=== PATIENT | female | born 1925 | race Caucasian/White ===

== ENCOUNTER 2016-05-20 23:29 | Observation (INO) | payer OTHER ==
[~2016-05-20] VITALS: Ht 152.4 cm; Wt 84.8 kg
[~2016-05-20 23:29] MED LIST: ACET-1222 PO; ASPI81TA21 PO; ATOR-24 PO; LATA0.009 OPB; LISI-461 PO; METO25TA3 PO; NTRGSL4 UT; PRLSR20 PO; ROPI0.25 PO; SITA25TA PO; TIMO0.2534 OP
--- NOTE | 2016-05-20 23:47 | EMERGENCY ROOM VISIT NOTE ---
History Report prepared by Griffinibcheng: Linda Terry Under the Supervision of: Dr. Sukumar Fountain M.D. First contact with patient: 23:39 Chief Complaint: COUGH Stated Complaint: CONGESTIVE HEART FAILURE,SORETHROAT,COUGH History of Present Illness The patient is a 89 year old female who presents to the Emergency Room with complaints of worsened shortness of breath over the past 1.5 days. Per patient' s family, the patient developed some cold-like symptoms 4 days ago, including a cough and congestion. Yesterday, the patient's family noticed that she was having some difficulty breathing. Her family were concerned as the patient has a history of CHF. She is not on oxygen at home. She takes baby aspirin but is not on any other blood thinners. Source of History: patient Onset: 1.5 days ago Position: other (Global) Timing: worsening Associated Symptoms: + cough Note: Other symptoms: congestion Review of Systems See HPI for pertinent positives & negatives. A total of 10 systems reviewed and were otherwise negative. Past Medical & Surgical Medical Problems: (1) Aortic valve stenosis, severe (2) Diab Azeb Wo Compl, Type Ii Or Unspec Type, Not Uncntrld (3) GERD (gastroesophageal reflux disease) (4) Glaucoma (5) H/O: CVA (cerebrovascular accident) (6) Heart disease (7) Heterozygous for MTHFR gene mutation (8) Hip fracture, intertrochanteric (9) History of DVT (deep vein thrombosis) (10) History of fracture of vertebra (11) History of pulmonary embolus (PE) (12) Hyperlipidemia Nec/Nos (13) Hypertension Nos (14) Osteoporosis (15) PVD (peripheral vascular disease) (16) RBBB (17) Rheumatoid arthritis (18) Right Hip Fracture (19) S/p stomach biopsy (20) SOB (shortness of breath) Surgical Problems: (1) H/O esophagogastroduodenoscopy (2) H/O heart bypass surgery (3) H/O thyroid surgery (4) History of cataract surgery (5) History of right knee joint replacement (6) S/P CABG x 2 (7) S/p fixation of hip fracture (8) S/P repair of paraesophageal hernia Family History Diabetes mellitus FH: cancer FH: heart disease Hypertension Kidney disease Kidney stones Social History Smoking Status: Never Smoker Alcohol Use: none Drug Use: none Marital Status: Housing Status: lives alone Occupation Status: retired Current/Historical Medications Scheduled Aspirin Enteric Coated (Ecotrin Or Generic), 81 MG PO DAILY Atorvastatin (Lipitor), 40 MG PO DAILY Furosemide (Lasix), 10 MG PO DAILY Latanoprost (Xalatan 0.005% Oph [place]), 1 DROPS OPB HS Lisinopril (Zestril), 10 MG PO QAM Metoprolol Succ (Toprol Xl) (Toprol-Xl), 12.5 MG PO DAILY Omeprazole (Prilosec), 20 MG PO QAM Ropinirole (Requip), 0.25 MG PO HS Sitagliptin (Januvia), 25 MG PO QAM Scheduled PRN Acetaminophen (Acetaminophen Extra Stren), 1,000 MG PO Q6 PRN for Pain or Fever Nitroglycerin (Nitrostat), 0.4 MG UT UD PRN for Chest Pain Allergies Coded Allergies: No Known Allergies (Verified , 05/21/16) Physical Exam Vital Signs Date Time Temp Pulse Resp B/P Pulse Ox O2 Delivery O2 Flow Rate FiO2 05/21/16 00:54 82 20 94 Room Air 05/20/16 23:53 91 05/20/16 23:49 92 Room Air 05/20/16 23:48 89 Room Air 05/20/16 23:47 93 Room Air 05/20/16 23:34 36.8 91 20 166/80 95 Room Air Physical Exam GENERAL: Patient is a healthy-appearing well-nourished 89 year old female. HEAD: Normocephalic atraumatic EYES: Ocular movements intact pupils equal and react to light OROPHARYNX mucous membranes are moist no exudates present no erythema or edema present NECK: Supple no nuchal rigidity CHEST: Good equal expansion LUNGS: Clear and equal to auscultation CARDIAC: Grade 2/6 systolic murmur. ABDOMEN: Soft nontender no guarding BACK: No CVA tenderness EXTREMITIES: No pain upon palpation normal muscle strength in all groups no clubbing cyanosis or edema NEURO: Patient is following commands is answering questions appropriately. Alert and oriented x3 Cranial Nerves 2-12 grossly intact Medical Decision & Procedures ER Provider Diagnostic Interpretation: X-ray results as stated below per interpretation by me: Chest x-ray 1 view portable: Enlarged heart. No evidence of pneumonia, congestion, or pneumothorax. Laboratory Results 05/20/16 23:52 Red Blood Count 3.61, Mean Corpuscular Volume 87.8, Mean Corpuscular Hemoglobin 29.1, Mean Corpuscular Hemoglobin Concent 33.1, Mean Platelet Volume 10.0, Neutrophils (%) (Auto) 68.5, Lymphocytes (%) (Auto) 25.0, Monocytes (%) (Auto) 5.8, Eosinophils (%) (Auto) 0.3, Basophils (%) (Auto) 0.1, Neutrophils # (Auto) 4.95, Lymphocytes # (Auto) 1.81, Monocytes # (Auto) 0.42, Eosinophils # (Auto) 0.02, Basophils # (Auto) 0.01 05/20/16 23:52 Test 05/20/16 00:00 05/20/16 23:52 Influenza Type A (RT-PCR) Neg for Influ A (NEG) Influenza Type B (RT-PCR) Neg for Influ B (NEG) White Blood Count 7.23 K/uL (4.8-10.8) Red Blood Count 3.61 M/uL (4.2-5.4) Hemoglobin 10.5 g/dL (12.0-16.0) Hematocrit 31.7 % (37-47) Mean Corpuscular Volume 87.8 fL (80-100) Mean Corpuscular Hemoglobin 29.1 pg (25-34) Mean Corpuscular Hemoglobin Concent 33.1 g/dl (32-36) Platelet Count 278 K/uL (130-400) Mean Platelet Volume 10.0 fL (7.4-10.4) Neutrophils (%) (Auto) 68.5 % Lymphocytes (%) (Auto) 25.0 % Monocytes (%) (Auto) 5.8 % Eosinophils (%) (Auto) 0.3 % Basophils (%) (Auto) 0.1 % Neutrophils # (Auto) 4.95 K/uL (1.4-6.5) Lymphocytes # (Auto) 1.81 K/uL (1.2-3.4) Monocytes # (Auto) 0.42 K/uL (0.11-0.59) Eosinophils # (Auto) 0.02 K/uL (0-0.5) Basophils # (Auto) 0.01 K/uL (0-0.2) RDW Standard Deviation 46.5 fL (36.4-46.3) RDW Coefficient of Variation 14.4 % (11.5-14.5) Immature Granulocyte % (Auto) 0.3 % Immature Granulocyte # (Auto) 0.02 K/uL (0.00-0.02) Prothrombin Time 10.7 SECONDS (9.0-12.0) Prothromb Time International Ratio 1.0 (0.9-1.1) D-Dimer 2960 ug/L FEU (0-500) Anion Gap 12.0 mmol/L (3-11) Est Creatinine Clear Calc Drug Dose 36.2 ml/min Estimated GFR () 57.8 Estimated GFR (Non- 49.9 BUN/Creatinine Ratio 23.2 (10-20) Calcium Level 8.4 mg/dl (8.5-10.1) Magnesium Level 1.9 mg/dl (1.8-2.4) Total Bilirubin 0.6 mg/dl (0.2-1) Direct Bilirubin 0.1 mg/dl (0-0.2) Aspartate Amino Transf (AST/SGOT) 17 U/L (15-37) Alanine Aminotransferase (ALT/SGPT) 28 U/L (12-78) Alkaline Phosphatase 118 U/L (45-117) Total Creatine Kinase 55 U/L (26-192) Creatine Kinase MB 0.5 ng/ml (0.5-3.6) Creatine Kinase MB Ratio 0.9 (0-3.0) Pro-B-Type Natriuretic Peptide 1492 pg/ml (0-1800) Total Protein 7.1 gm/dl (6.4-8.2) Albumin 3.3 gm/dl (3.4-5.0) Lipase 135 U/L (73-393) Labs reviewed by ED physician. Medications Administered Medications (Trade) Dose Ordered Sig/Deborah Route Start Time Stop Time Status Last Admin Dose Admin Albuterol/ Ipratropium (Duoneb) 12 ml ONE ONCE INH 05/21/16 00:15 05/21/16 00:17 DC 05/21/16 00:15 12 ML Methylprednisolone Sodium Succinate (Solu-Medrol IV) 60 mg NOW STAT IV 05/21/16 00:15 05/21/16 00:17 DC 05/21/16 00:43 60 MG ECG Indication: SOB/dyspnea Rate (beats per minute): 89 Rhythm: normal sinus Findings: RBBB, no acute ischemic change, no ectopy ED Course 2340: Past medical records reviewed. The patient was evaluated in room A11. A complete history and physical examination was performed. 0015: Ordered Solu-Medrol 60 mg IV, DuoNeb 12 ml INH. 0104: Upon reexamination the patient is resting comfortably. I discussed results and treatment plan with the patient. The patient and her family verbalizes agreement and understanding. I spoke with Dr. Arana from the [facility] Hospitalist Service. The patient will be evaluated for further management. Medical Decision Differential diagnosis: Etiologies such as infections, reactive airway disease, pneumonia, pneumothorax , COPD, CHF, cardiac ischemia, pulmonary embolism, musculoskeletal, gastrointestinal, as well as others were entertained. This is an 89-year-old female who presents emergency department complaining of shortness of breath that has been on going for the past 2 days. Upon arrival to the emergency department the patient is hypoxic. For this reason the patient was given an hour-long breathing treatment started on Solu-Medrol. Chest x-ray does not show any evidence of congestive heart failure. The patient does have an elevation in her troponin. I will note that the patient normally has an elevated troponin however today's reading is slightly higher than normal. Based on these findings and fact the patient remains hypoxic, I discussed the case with the hospitalist service who agreed to admit the patient. Patient and family were in agreement with the treatment plan. Consults Time Called: [phone] Consulting Physician: Dr. Arana - [facility] Returned Call: [phone] I discussed the case with him. The patient will be evaluated for further management. Impression Primary Impression: Chronic obstructive pulmonary disease Additional Impression: Hypoxia Scribe Attestation The scribe's documentation has been prepared under my direction and personally reviewed by me in its entirety. I confirm that the note above accurately reflects all work, treatment, procedures, and medical decision making performed by me. Departure Information Dispostion Being Evaluated By Hospitalist Referrals Robson Oquendo D.O. (PCP) Patient Instructions My [facility] Problem Qualifiers Primary Impression: Chronic obstructive pulmonary disease COPD type: unspecified COPD Qualified Codes: J44.9 - Chronic obstructive pulmonary disease, unspecified
[2016-05-20] MEDS ORDERED: LATA0.5S OPB (23:57)
[2016-05-20] MEDS ORDERED: METO25TA3 PO (23:58)
[2016-05-21] MEDS ORDERED: FURO-85 PO
[2016-05-21 00:12] LABS: BASO % 0.1 %; BASO ABS # 0.01 K/uL (0-0.2); COMPLETE YES; EOS % 0.3 %; HEMATOCRIT 31.7 % (37-47); IG% 0.3 %; LYMPH ABS # 1.81 K/uL (1.2-3.4); MEAN CELL VOLUME 87.8 fL (80-100); MEAN CORPUSCULAR HEMOGLOBIN 29.1 pg (25-34); MEAN CORPUSCULAR HGB CONC 33.1 g/dl (32-36); MONO % 5.8 %; NEUT % 68.5 %; PLATELET COUNT 278 K/uL (130-400); RED BLOOD COUNT 3.61 M/uL (4.2-5.4); WHITE BLOOD COUNT 7.23 K/uL (4.8-10.8)
[2016-05-21] MEDS ORDERED: METHYLPREDNISOLONE 125 MG VIAL IV STA (00:15)
[2016-05-21] MEDS ORDERED: ALBUT/IPRATROP 3MG/0.5MG NEB 3 ML VIAL INH ONE (00:15)
[2016-05-21 00:21] LABS: PROTHROMBIN TIME (PATIENT) 10.7 SECONDS (9.0-12.0)
[2016-05-21 00:31] LABS: BUN/CREATININE RATIO 23.2 (10-20); CALCIUM 8.4 mg/dl (8.5-10.1); POTASSIUM 4.3 mmol/L (3.5-5.1)
[2016-05-21 00:42] LABS: CKMB/CK RATIO 0.9 (0-3.0)
[2016-05-21 00:54] VITALS: PULSE 82; O2SAT 94
[2016-05-21 01:12] LABS: MAGNESIUM 1.9 mg/dl (1.8-2.4)
[2016-05-21] MEDS ORDERED: ALBUT/IPRATROP 3MG/0.5MG NEB 3 ML VIAL INH PRN (01:45)
[2016-05-21] MEDS ORDERED: ACETAMINOPHEN 325 MG TAB PO PRN (01:45)
[2016-05-21] MEDS ORDERED: GLUCOSE 40% GEL 15 GM TUBE PO PRN (01:45)
[2016-05-21] MEDS ORDERED: GLUCAGON FOR INJ 1 MG VIAL SQ PRN (01:45)
[2016-05-21] MEDS ORDERED: ONDANSETRON INJ 2 MG/ML 2 ML VIAL IV PRN (01:45)
[2016-05-21] MEDS ORDERED: NITROGLYCERIN 0.4 MG SL PER TAB CHARGE UT PRN (01:45)
[2016-05-21] MEDS ORDERED: TRAMADOL HCL 50 MG TAB PO PRN (01:45)
[2016-05-21] MEDS ORDERED: GLUCOSE 10 TABS/TUBE PO PRN (01:45)
[2016-05-21] MEDS ORDERED: NITROGLYCERIN 0.4 MG SL PER TAB CHARGE SL PRN (01:45)
[2016-05-21] MEDS ORDERED: MoRPHine SULFATE 4 MG/ML 1 ML CARP\\VIAL IV PRN (01:45)
[2016-05-21] MEDS ORDERED: DEXTROSE 50% 50 ML SYR IV PRN (01:45)
[2016-05-21] MEDS ORDERED: OPTIRAY 320 IV PRN (02:00)
[2016-05-21 02:15] LABS: INFLUENZA A PCR Neg for Influ A (NEG); INFLUENZA B PCR Neg for Influ B (NEG)
[2016-05-21 02:32] VITALS: BP 128/79; PULSE 99; TEMP 36.6; O2SAT 91; Ht 152.4 cm; Wt 84.8 kg
[2016-05-21] MEDS ORDERED: SODIUM CHLORIDE 0.45% 1000ML 1,000 ML IV ONE (02:45)
[2016-05-21] MEDS ORDERED: INSULIN GLARGINE SOLOSTAR 100 UNITS/ML 3 ML PEN SC ONE (02:45)
[2016-05-21] MEDS ORDERED: IV FLUIDS COMPLETED PRN (02:45)
[2016-05-21] MEDS ORDERED: LEVALBUTEROL/IPRATROPIUM NEB INH PRN (03:00)
[2016-05-21] MEDS ORDERED: IPRATROPIUM BROMIDE NEB SOLN 0.02% 2.5 ML VIAL INH PRN (03:00)
[2016-05-21] MEDS ORDERED: LEVALBUTEROL/IPRATROPIUM NEB INH SCH (03:00)
[2016-05-21] MEDS ORDERED: LEVALBUTEROL 1.25MG/0.5ML NEB INH PRN (03:00)
[2016-05-21 04:00] VITALS: BP 118/64; PULSE 97; TEMP 36.9; O2SAT 92
--- NOTE | 2016-05-21 04:59 | HISTORY & PHYSICAL EXAMINATION ---
DATE OF ADMISSION: 05/21/2016 PRIMARY CARE PHYSICIAN: Dr. Oquendo. Hx obtained from px and records. CHIEF COMPLAINT: Shortness of breath. HISTORY OF PRESENT ILLNESS: Medical history significant for chronic diastolic heart failure, EF of 70%, history of hemorrhagic CVA secondary, hypertension, hyperlipidemia, CAD sp CABG, hx severe aortic stenosis, DM2, on oral meds, reflux, history of pulmonary embolism sp coumadin, chronic anemia, baseline hemoglobin 9 to 10, Recent confinement last November 2015 for sob secondary to severe aortic stenosis. Patient not a surgical candidate, as per documentation. Few days' history of cough symptoms productive of clear sputum. No chest pain. Sick contacts. Patient noted to be short of breath, leg swelling more than usual. No fever, no chills. At the Emergency Room, px received Solu-Medrol and breathing treatment for bronchitis. The patient currently comfortable. MEDICAL HISTORY: As above. SURGERIES: She has had orthopedic procedures, thyroidectomy, CAD status post CABG, cataract, knee surgery, hernia repair. HOME MEDICATIONS: Include Toprol, Nitrostat, Prilosec, Requip, Januvia, Tylenol, aspirin, Lipitor, Lasix, Xalatan, lisinopril. ALLERGIES: No known drug allergies. FAMILY HISTORY: Heart disease. PERSONAL AND SOCIAL HISTORY: Nonsmoker, no chronic intake of alcoholic beverages. REVIEW OF SYSTEMS: As per HPI, all other ROS negative. PHYSICAL EXAMINATION: VITAL SIGNS: Blood pressure noted to be initially 163/80, later 111/61, pulse rate 91, RR 26, sats 95 on room air. GENERAL: Noted to be obese, comfortable, no respiratory distress. SKIN: Pallor. HEENT: Pale palpebral conjunctivae. Dry mucosa. NECK: Short neck. LUNGS: Decreased breath sounds. Occasional wheeze. HEART: Regular rate and rhythm. Systolic murmur. ABDOMEN: Some distention, non tender. EXTREMITIES: Bilateral lower extremity edema, no tenderness. NEUROLOGIC: No gross focality. LABS: Hemoglobin 10.5, hematocrit 31, white cells 7.3, platelets 278. Sodium 140, potassium 4.3, chloride 102, CO2 26, BUN 20, creatinine 1, glucose 140. Hemoglobin A1c, March 2016, was 7.7. D-dimer was abnormal. Troponin noted to be 0.131. EKG NSR, ST depressions, lateral leads. Chest x-ray showed atelectasis and cardiomegaly. ASSESSMENT: 1. Shortness of breath, troponinemia 2 to viral bronchitis. No sepsis. Rule out recurrent pulmonary embolism with abnormal D-dimer, 2. HTN slightly elevated 3. coronary artery disease, status post coronary artery bypass grafting 4. severe aortic stenosis, no overt decompensation. Not a surgical candidate, as per previous documentation. 5. chronic anemia, hemoglobin at baseline. 6. History of intracranial hemorrhage secondary to uncontrolled blood pressure in the past 7. reymundo leg swelling, rule out deep venous thrombosis, 8. DM2. oral meds, suboptimal control as of recent HgA1C PLAN: PCU. CT chest, PE study. LE Venous Dopplers ro DVT. Further management pending PE workup results supportive mx for bronchitis sx, nebs RTC, prn Follow cardiac markers. Basal insulin, ISS BG goal 140-180. carb count coverage indicated for suboptimal BG control DVT prophylaxis with Lovenox subQ. DNR. MTDD
[2016-05-21 05:55] LABS: COMPLETE YES; HEMATOCRIT 30.3 % (37-47); IG% 0.2 %; LYMPH % 14.5 %; LYMPH ABS # 0.91 K/uL (1.2-3.4); MEAN CELL VOLUME 87.3 fL (80-100); MEAN CORPUSCULAR HEMOGLOBIN 29.7 pg (25-34); MEAN PLATELET VOLUME 10.1 fL (7.4-10.4); MONO % 1.9 %; NEUT % 83.4 %; PLATELET COUNT 256 K/uL (130-400); RED BLOOD COUNT 3.47 M/uL (4.2-5.4); WHITE BLOOD COUNT 6.29 K/uL (4.8-10.8)
[2016-05-21 06:35] LABS: BUN/CREATININE RATIO 19.3 (10-20); CALCIUM 8.6 mg/dl (8.5-10.1); CREATININE 1.1 mg/dl (0.60-1.20); POTASSIUM 4.2 mmol/L (3.5-5.1)
--- NOTE | 2016-05-21 06:56 | DIAGNOSTIC IMAGING REPORT ---
CHEST ONE VIEW PORTABLE CLINICAL HISTORY: Chest pain. COMPARISON STUDY: Chest radiograph December 15, 2015. FINDINGS: There are median sternotomy wires and clips from bypass grafting. There is no evidence of pulmonary edema. No pneumothorax or pleural effusion is present. Mild hazy left basilar opacity likely reflects atelectasis or prominent epicardial fat pad. Moderate cardiomegaly is unchanged. IMPRESSION: No acute findings. No change in appearance of the chest. Electronically signed by: Tolu Treviño M.D. 05/21/2016 6:54 AM Dictated Date/Time: 05/21/2016 6:53 AM
[2016-05-21 07:27] VITALS: PULSE 93; O2SAT 97
[2016-05-21] MEDS: IPRATROPIUM BROMIDE NEB SOLN 0.02% 2.5 ML VIAL INH SCH ×2 (07:27→14:07)
[2016-05-21] MEDS: LEVALBUTEROL 1.25MG/0.5ML NEB INH SCH ×2 (07:27→14:07)
[2016-05-21 07:54] VITALS: BP 119/69; PULSE 91; TEMP 37; O2SAT 91
--- NOTE | 2016-05-21 07:57 | DIAGNOSTIC IMAGING REPORT ---
CHEST CTA for PULMONARY ARTERIES CT DOSE: 538.19 mGy.cm HISTORY: Short of breath. TECHNIQUE: Multiaxial CT images of the chest were performed following the intravenous administration of contrast to evaluate the pulmonary arteries. Maximal intensity projection images were also obtained. COMPARISON STUDY: Chest 05/20/2016. FINDINGS: There are few punctate calcified granuloma seen within the liver and spleen. Visualized adrenal glands are unremarkable. A few small gallstones. Moderate stenosis at the proximal celiac and superior mesenteric arteries. The heart is enlarged. There are poststernotomy changes. Moderate stenosis at the proximal left subclavian artery. Normal caliber thoracic aorta. Moderate calcified plaque within the aortic arch and descending thoracic aorta. No filling defects within the pulmonary arteries to suggest pulmonary embolus. No pleural or pericardial effusions. Mitral annulus calcifications. Multiple borderline-enlarged mediastinal lymph nodes. The central airways are patent. No pneumothorax. Mild dependent changes seen at the lung bases. No focal lung consolidations to suggest pneumonia. Scattered faint groundglass densities may be due to the poor inspiratory effort/air trapping. IMPRESSION: No evidence for pulmonary embolus. Additional findings as described above. Electronically signed by: Colby Crabtree M.D. 05/21/2016 7:56 AM Dictated Date/Time: 05/21/2016 7:49 AM
[2016-05-21] MEDS ORDERED: ALBUT/IPRATROP 3MG/0.5MG NEB 3 ML VIAL INH SCH (08:00)
--- NOTE | 2016-05-21 08:41 | DIAGNOSTIC IMAGING REPORT ---
BILATERAL LOWER EXTREMITY VENOUS DOPPLER CLINICAL HISTORY: Bilateral leg swelling. COMPARISON STUDY: Right lower extremity venous Doppler June 11, 2011 and left lower extremity venous Doppler January 05, 2009 TECHNIQUE: Sonography of the deep venous system of the bilateral lower extremities was performed. Compression and augmentation were evaluated. FINDINGS: The bilateral common femoral, superficial femoral and popliteal veins were compressible. Augmentation was normal. Flow was shown within the deep calf vessels although the calf vessels were suboptimally assessed due to suboptimal penetration. IMPRESSION: No evidence of deep venous thrombus within the bilateral lower extremities. Electronically signed by: Tolu Treviño M.D. 05/21/2016 8:40 AM Dictated Date/Time: 05/21/2016 8:27 AM
[2016-05-21] MEDS ORDERED: ATORVASTATIN 40 MG TAB PO SCH (09:00)
[2016-05-21] MEDS ORDERED: ASPIRIN 81 MG ECTAB PO SCH (09:00)
[2016-05-21] MEDS ORDERED: LISINOPRIL 10 MG TAB PO SCH (09:00)
[2016-05-21] MEDS ORDERED: ENOXAPARIN 30 MG/0.3 ML SYR SC SCH (09:00)
[2016-05-21] MEDS ORDERED: PANTOprazole SOD 40 MG TAB PO SCH (09:00)
[2016-05-21] MEDS ORDERED: METOPROLOL SUCC 25MG EXT REL TAB PO SCH (09:00)
[2016-05-21] MEDS: INSULIN ASPART 100 UNITS/ML 3 ML PEN SC SCH ×2 (09:33→12:15)
--- NOTE | 2016-05-21 09:56 | Progress Note ---
Subjective Date of Service: May 21, 2016. Subjective Pt evaluation today including: conversation w/ patient, physical exam, lab review, review of studies, review of inpatient medication list Saw/examined the patient in room 284 Doing well today, very anxious to get home, does not want to be here Cough improving, no shortness of breath, no chest pain Problem List Medical Problems: (1) Acute renal failure Status: Acute (2) Chronic obstructive pulmonary disease Status: Acute (3) Elevated troponin Status: Acute (4) Hypoxia Status: Acute (5) Weakness Status: Acute Review of Systems Constitutional: No chills, No fever Respiratory: + cough, + sputum, No dyspnea at rest, No dyspnea on exertion, No hemoptysis, No shortness of breath, No wheezing Cardiac: No chest pain, No edema, No orthopnea, No palpitations Abdomen: No constipation, No diarrhea, No nausea, No pain, No vomiting Medications Current Inpatient Medications Medications (Trade) Dose Ordered Sig/Deborah Route Start Time Stop Time Status Last Admin Dose Admin Insulin Glargine (Lantus Solostar Pen) 5 unit DAILY SC 05/22/16 09:00 06/21/16 08:59 Enoxaparin Sodium 30 mg 30 mg Q24H SC 05/21/16 09:00 06/20/16 08:59 05/21/16 07:45 30 MG Sodium Chloride (1/2 Nss 1000ml) 1,000 ml @ 60 mls/hr [id number] ONCE IV 05/21/16 02:45 05/21/16 19:24 05/21/16 02:58 60 MLS/HR Acetaminophen (Tylenol Tab) 650 mg Q4H PRN PO 05/21/16 01:45 06/20/16 01:44 05/21/16 05:48 650 MG Nitroglycerin (Nitrostat Tab) 0.4 mg UD PRN SL 05/21/16 01:45 06/20/16 01:44 Insulin Aspart (novoLOG ASPART) SLIDING SCALE If C... ACHS SC 05/21/16 06:30 06/20/16 06:59 05/21/16 09:33 8 UNITS Glucose (Glucose 40% Gel) 15-30 GRAMS 15 GRAMS... UD PRN PO 05/21/16 01:45 06/20/16 01:44 Glucose (Glucose Chew Tab) 4-8 Tablets 4 Tabl... UD PRN PO 05/21/16 01:45 06/20/16 01:44 Dextrose (Dextrose 50% 50ML Syringe) 25-50ML OF 50% DW IV FOR... UD PRN IV 05/21/16 01:45 06/20/16 01:44 Glucagon (Glucagon Inj) 1 mg UD PRN SQ 05/21/16 01:45 06/20/16 01:44 Ondansetron HCl (Zofran Inj) 4 mg Q6H PRN IV 05/21/16 01:45 06/20/16 01:44 Tramadol HCl (Ultram Tab) 25 mg Q6H PRN PO 05/21/16 01:45 06/20/16 01:44 Morphine Sulfate (MoRPHine SULFATE INJ) 4 mg Q3H PRN IV 05/21/16 01:45 06/04/16 01:44 Aspirin (Ecotrin Tab) 81 mg DAILY PO 05/21/16 09:00 06/20/16 08:59 05/21/16 07:40 81 MG Atorvastatin Calcium (Lipitor Tab) 40 mg DAILY PO 05/21/16 09:00 06/20/16 08:59 05/21/16 07:40 40 MG Latanoprost (Xalatan Oph Soln) 1 drops HS OPB 05/21/16 21:00 06/20/16 20:59 Lisinopril (Zestril Tab) 10 mg QAM PO 05/21/16 09:00 06/20/16 08:59 05/21/16 07:40 10 MG Metoprolol Succinate (Toprol Xl Tab) 12.5 mg DAILY PO 05/21/16 09:00 06/20/16 08:59 05/21/16 07:39 12.5 MG Ropinirole HCl (Requip Tab) 0.25 mg HS PO 05/21/16 21:00 06/20/16 20:59 Pantoprazole Sodium (Protonix Tab) 40 mg QAM PO 05/21/16 09:00 06/20/16 08:59 05/21/16 07:40 40 MG Ioversol (Optiray 320) 100 ml UD PRN IV 05/21/16 02:00 05/25/16 01:59 Miscellaneous (Iv Fluids Completed) 1 ea PRN PRN N/A 05/21/16 02:45 05/21/17 02:44 Ipratropium [place] (Atrovent 0.02% 0.5MG/2.5ML Neb) 0.5 mg Q6R INH 05/21/16 03:00 06/20/16 02:59 05/21/16 07:27 0.5 MG Levalbuterol (Xopenex 1.25MG/ 0.5ML Neb) 1.25 mg Q6R INH 05/21/16 03:00 06/20/16 02:59 05/21/16 07:27 1.25 MG Ipratropium [place] (Atrovent 0.02% 0.5MG/2.5ML Neb) 0.5 mg Q4H PRN INH 05/21/16 03:00 06/20/16 02:59 Levalbuterol (Xopenex 1.25MG/ 0.5ML Neb) 1.25 mg Q4H PRN INH 05/21/16 03:00 06/20/16 02:59 Objective Vital Signs Date Time Temp Pulse Resp B/P Pulse Ox O2 Delivery O2 Flow Rate FiO2 05/21/16 07:54 37.0 91 16 119/69 91 Room Air 05/21/16 07:27 93 18 97 Room Air 05/21/16 04:00 36.9 97 20 118/64 92 Room Air 05/21/16 02:32 36.6 99 22 128/79 91 Room Air 05/21/16 02:01 76 22 114/72 94 Room Air 05/21/16 01:19 78 24 111/61 98 Nebulizer 05/21/16 00:54 82 20 94 Room Air 05/20/16 23:53 91 05/20/16 23:49 92 Room Air 05/20/16 23:48 89 Room Air 05/20/16 23:47 93 Room Air 05/20/16 23:34 36.8 91 20 166/80 95 Room Air Physical Exam General Appearance: no apparent distress Respiratory/Chest: lungs clear, normal breath sounds, no respiratory distress, no accessory muscle use Cardiovascular: regular rate, rhythm, no edema, + systolic murmur (+4/6) Abdomen: normal bowel sounds, non tender, soft Extremities: normal inspection, no pedal edema Neurologic/Psychiatric: no motor/sensory deficits, alert, normal mood/affect Laboratory Results Last 24 Hours Test 05/20/16 23:52 05/21/16 05:42 05/21/16 07:33 White Blood Count 7.23 K/uL 6.29 K/uL Red Blood Count 3.61 M/uL 3.47 M/uL Hemoglobin 10.5 g/dL 10.3 g/dL Hematocrit 31.7 % 30.3 % Mean Corpuscular Volume 87.8 fL 87.3 fL Mean Corpuscular Hemoglobin 29.1 pg 29.7 pg Mean Corpuscular Hemoglobin Concent 33.1 g/dl 34.0 g/dl Platelet Count 278 K/uL 256 K/uL Mean Platelet Volume 10.0 fL 10.1 fL Neutrophils (%) (Auto) 68.5 % 83.4 % Lymphocytes (%) (Auto) 25.0 % 14.5 % Monocytes (%) (Auto) 5.8 % 1.9 % Eosinophils (%) (Auto) 0.3 % 0.0 % Basophils (%) (Auto) 0.1 % 0.0 % Neutrophils # (Auto) 4.95 K/uL 5.25 K/uL Lymphocytes # (Auto) 1.81 K/uL 0.91 K/uL Monocytes # (Auto) 0.42 K/uL 0.12 K/uL Eosinophils # (Auto) 0.02 K/uL 0.00 K/uL Basophils # (Auto) 0.01 K/uL 0.00 K/uL RDW Standard Deviation 46.5 fL 46.1 fL RDW Coefficient of Variation 14.4 % 14.4 % Immature Granulocyte % (Auto) 0.3 % 0.2 % Immature Granulocyte # (Auto) 0.02 K/uL 0.01 K/uL Prothrombin Time 10.7 SECONDS Prothromb Time International Ratio 1.0 D-Dimer 2960 ug/L FEU Sodium Level 141 mmol/L 138 mmol/L Potassium Level 4.3 mmol/L 4.2 mmol/L Chloride Level 103 mmol/L 101 mmol/L Carbon Dioxide Level 26 mmol/L 26 mmol/L Anion Gap 12.0 mmol/L 11.0 mmol/L Blood Urea Nitrogen 23 mg/dl 21 mg/dl Creatinine 1.00 mg/dl 1.10 mg/dl Est Creatinine Clear Calc Drug Dose 36.2 ml/min 33.4 ml/min Estimated GFR () 57.8 51.5 Estimated GFR (Non- 49.9 44.5 BUN/Creatinine Ratio 23.2 19.3 Random Glucose 143 mg/dl 250 mg/dl Calcium Level 8.4 mg/dl 8.6 mg/dl Magnesium Level 1.9 mg/dl Total Bilirubin 0.6 mg/dl Direct Bilirubin 0.1 mg/dl Aspartate Amino Transf (AST/SGOT) 17 U/L Alanine Aminotransferase (ALT/SGPT) 28 U/L Alkaline Phosphatase 118 U/L Total Creatine Kinase 55 U/L Creatine Kinase MB 0.5 ng/ml Creatine Kinase MB Ratio 0.9 Troponin I 0.131 ng/ml 0.138 ng/ml Pro-B-Type Natriuretic Peptide 1492 pg/ml Total Protein 7.1 gm/dl Albumin 3.3 gm/dl Lipase 135 U/L Bedside Glucose 275 mg/dl Assessment and Plan This is an 89 year old female with PMH of severe aortic stenosis, CAD s/p CABG, hx. of hemorrhagic CVA, DM2, HLD, hx. of PE/DVT presented with cough/shortness of breath Cough/SOB Likely Viral Bronchitis * CXR no acute findings * CTA no PE * flu negative * hemodynamically stable * cough improving * no breathing issues this morning * uses wheelchair at baseline; grandson lives close by * plan is for d/c home today * will d/c on Medrol Dosepak and Tessalon Perles Severe Aortic Stenosis * critical aortic stenosis * no surgical intervention, not a surgical candidate * at baseline - dyspnea on exertion * will eventually need a palliative care consultation CAD s/p CABG Mild elevation of troponin levels * troponin elevation likely secondary to a combination of severe aortic stenosis and bronchitis/cough * no chest pain * f/u with cardiology in May 2016 as scheduled CKD, stage 3 * at baseline DM2 * hold oral agents * ISS HTN * stable * continue home medications DVT ppx * lovenox DNR
[2016-05-21] MEDS ORDERED: BENZ100C18 PO (09:57)
[2016-05-21] MEDS ORDERED: METH4PAK PO (09:57)
--- NOTE | 2016-05-21 10:02 | Discharge Instructions ---
Discharge Instructions Admission Reason for Admission: SOB Discharge Discharge Diagnosis / Problem: Viral Bronchitis Discharge Goals Goal(s): Decrease discomfort, Improve function Activity Recommendations Activity Limitations: resume your previous activity . Instructions / Follow-Up Instructions / Follow-Up Please follow up with Dr. Perez on May 28 @ 11:40 * You will be prescribed medrol dose rafaela (steroids) take this as directed * You are prescribed tessalon perles for cough Current Hospital Diet Patient's current hospital diet: Diabetes Type 2 Diet Discharge Diet Recommended Diet: AHA Diet (Heart Healthy), Diabetes Type 2 Diet Pending Studies Studies pending at discharge: no Medical Emergencies . Who to Call and When: Medical Emergencies: If at any time you feel your situation is an emergency, please call 911 immediately. . Non-Emergent Contact Non-Emergency issues call your: Primary Care Provider . . "Provider Documentation" section prepared by Nataliia Farah. VTE Core Measure Inpt VTE Proph given/why not?: Enoxaparin (Lovenox)SQ
--- NOTE | 2016-05-21 10:04 | Discharge Summary ---
Discharge Summary Admission Date: May 21, 2016 at 01:09 Discharge Date: May 21, 2016 Discharge Disposition: Home Principal Diagnosis: Viral Bronchitis Elevation of Troponin secondary to severe Severe Aortic Stenosis Medication Reconciliation New Medications: Benzonatate (Tessalon Perles) 100 Mg Cap 1 CAP PO TID for 7 Days, #21 CAP Methylprednisolone (Medrol Dosepak) 4 Mg Alhaji 1 PKT PO DAILY, #1 PKT Continued Medications: Acetaminophen (Acetaminophen Extra Stren) 500 Mg Tab 1000 MG PO Q6 PRN for Pain or Fever Aspirin Enteric Coated (Ecotrin Or Generic) 81 Mg Tab 81 MG PO DAILY, TAB Atorvastatin (Lipitor) 40 Mg Tab 40 MG PO DAILY, 0 Refills Furosemide (Lasix) 20 Mg Tab 10 MG PO DAILY, TAB Latanoprost (Xalatan 0.005% Oph [place]) 0.005 % [place] 1 DROPS OPB HS, #2.5 ML 3 Refills Lisinopril (Zestril) 10 Mg Tab 10 MG PO QAM, TAB Metoprolol Succ (Toprol Xl) (Toprol-Xl) 25 Mg Tabcr 12.5 MG PO DAILY, #30 TAB Nitroglycerin (Nitrostat) 0.4 Mg/1 Tab Subl 0.4 MG UT UD PRN for Chest Pain Omeprazole (Prilosec) 20 Mg Capcr 20 MG PO QAM, 0 Refills Ropinirole (Requip) 0.25 Mg Tab 0.25 MG PO HS, TAB Sitagliptin (Januvia) 25 Mg Tab 25 MG PO QAM, TAB Admission Information HPI (per Admitting provider): DATE OF ADMISSION: 05/21/2016 PRIMARY CARE PHYSICIAN: Dr. Oquendo. CHIEF COMPLAINT: Shortness of breath. HISTORY OF PRESENT ILLNESS: Medical history significant for chronic diastolic heart failure, EF of 70%, history of hemorrhagic CVA secondary to hypertension, hypertension, hyperlipidemia, diabetes type 2, on oral meds, reflux, history of pulmonary embolism secondary to injury in the past surgery, chronic anemia, baseline hemoglobin 9 to 10, aortic stenosis ____. The patient not a surgical candidate, as per records. Recent confinement, last November 2015 for ____, secondary to severe aortic stenosis. Patient not a surgical candidate, as per documentation. A few days' history of cough symptoms productive of clear sputum. No chest pain. The patient noted to be short of breath, leg swelling more than usual. No fever, no chills. At the Emergency Room, received Solu-Medrol and breathing treatment for bronchitis. The patient currently comfortable. MEDICAL HISTORY: As above. SURGERIES: She has had orthopedic procedures, thyroidectomy, CAD status post CABG, cataract, knee surgery, hernia repair. HOME MEDICATIONS: Include Toprol, Nitrostat, Prilosec, Requip, Januvia, Tylenol, aspirin, Lipitor, Lasix, Xalatan, lisinopril. ALLERGIES: No known drug allergies. FAMILY HISTORY: Heart disease. PERSONAL AND SOCIAL HISTORY: Nonsmoker, no chronic intake of alcoholic beverages. REVIEW OF SYSTEMS: As per HPI, others negative. PHYSICAL EXAMINATION: VITAL SIGNS: Blood pressure noted to be initially 163/80, later 111/61, pulse rate 91, RR 26, sats 95 on room air. GENERAL: Noted to be obese, comfortable, no respiratory distress. SKIN: Pallor. HEENT: [place] palpebral conjunctivae. Dry mucosa. NECK: Short neck. LUNGS: Decreased breath sounds. Occasional wheeze. HEART: Regular rate and rhythm. Systolic murmur. ABDOMEN: Some distention, tender. EXTREMITIES: Bilateral lower extremity edema, no tenderness. NEUROLOGIC: No gross focality. LABS: Hemoglobin 10.5, hematocrit 31, white cells 7.3, platelets 278. Sodium 140, potassium 4.3, chloride 102, CO2 26, BUN 20, creatinine 1, glucose 140. Hemoglobin A1c, March 2016, was 7.7. EKG, some ST depressions, lateral leads. D-dimer was abnormal. Chest x-ray showed atelectasis and cardiomegaly. Troponin noted to be 0.131. ASSESSMENT: 1. Shortness of breath, troponinemia 2 to viral bronchitis. No sepsis. Rule out recurrent pulmonary embolism with abnormal D-dimer, 2. HTN slightly elevated 3. coronary artery disease, status post coronary artery bypass grafting 4. severe aortic stenosis, no overt decompensation. Not a surgical candidate, as per previous documentation. 5. chronic anemia, hemoglobin at baseline. 6. History of intracranial hemorrhage secondary to uncontrolled blood pressure in the past 7. reymundo leg swelling, rule out deep venous thrombosis, 8. DM2. oral meds, suboptimal control as of recent HgA1C PLAN: PCU. CT chest, PE study. LE Venous Dopplers ro DVT. Further management pending PE workup results supportive mx for bronchitis sx, nebs RTC, prn Follow cardiac markers. Basal insulin, ISS BG goal 140-180. carb count coverage indicated for suboptimal BG control DVT prophylaxis with Lovenox subQ. DNR. Hospital Course This is an 89 year old female with PMH of severe aortic stenosis, CAD s/p CABG, hx. of hemorrhagic CVA, DM2, HLD, hx. of PE/DVT presented with cough/shortness of breath Cough/SOB Likely Viral Bronchitis * CXR no acute findings * CTA no PE * flu negative * hemodynamically stable * cough improving * no breathing issues this morning * uses wheelchair at baseline; grandson lives close by * plan is for d/c home today * will d/c on Medrol Dosepak and Tessalon Perles Severe Aortic Stenosis * critical aortic stenosis * no surgical intervention, not a surgical candidate * at baseline - dyspnea on exertion * will eventually need a palliative care consultation CAD s/p CABG Mild elevation of troponin levels * troponin elevation likely secondary to a combination of severe aortic stenosis and bronchitis/cough * no chest pain * f/u with cardiology in May 2016 as scheduled CKD, stage 3 * at baseline DM2 * hold oral agents * ISS HTN * stable * continue home medications DVT ppx * lovenox DNR Total time spent on discharge = 25 minutes This includes examination of the patient, discharge planning, medication reconciliation, and communication with other providers. Discharge Instructions Please follow up with Dr. Perez on May 28 @ 11:40 * You will be prescribed medrol dose alhaji (steroids) take this as directed * You are prescribed tessalon perles for cough
[2016-05-21 10:05] VITALS: BP 119/69; PULSE 91; TEMP 37; O2SAT 91
[2016-05-21] MEDS ORDERED: COUGH DROP (SUGAR FREE) LOZ 24 LOZ/1 BOX ONE (10:30)
[2016-05-21] MEDS ORDERED: NURSING DECISION MEDICATION ORDER SCH (10:30)
[2016-05-21] MEDS ORDERED: COUGH DROP (SUGAR FREE) LOZ 24 LOZ/1 BOX PO PRN (11:45)
[2016-05-21] MEDS ORDERED: ROPINIROLE HCL 0.25 MG TAB PO SCH (21:00)
[2016-05-21] MEDS ORDERED: LATANOPROST 0.005% OP SOLN 2.5 ML BTL OPB SCH (21:00)
[2016-05-22] MEDS ORDERED: INSULIN GLARGINE SOLOSTAR 100 UNITS/ML 3 ML PEN SC SCH (09:00)
[2016-12-06] MEDS ORDERED: ROPI1TAB PO (19:56)
[2016-12-06] MEDS ORDERED: CEPH500C PO (22:21)
[2016-12-06] MEDS ORDERED: TRAM-10 PO (22:21)
== END 2016-05-21 14:40 | disposition home or self-care (01) ==
LOC: ENRESERVDT → ENRESERVTM → C.EDB 23:31 → C.MED 05-21 01:09
PROVIDERS: ADMIT Internal Medicine; ATTEND Family Medicine
DX: J20.8 Acute bronchitis due to other specified organisms (principal); I35.0 Nonrheumatic aortic (valve) stenosis; R78.89 Finding of other specified substances, not normally found in blood; B34.9 Viral infection, unspecified; D64.9 Anemia, unspecified; M79.89 Other specified soft tissue disorders; I13.0 Hypertensive heart and chronic kidney disease with heart failure and stage 1 through stage 4 chronic kidney disease, or unspecified chronic kidney disease; I50.32 Chronic diastolic (congestive) heart failure; E11.59 Type 2 diabetes mellitus with other circulatory complications; I73.9 Peripheral vascular disease, unspecified; K21.9 Gastro-esophageal reflux disease without esophagitis; E78.5 Hyperlipidemia, unspecified; N18.3 Chronic kidney disease, stage 3 (moderate); I25.10 Atherosclerotic heart disease of native coronary artery without angina pectoris; H40.9 Unspecified glaucoma; Z66 Do not resuscitate; Z51.81 Encounter for therapeutic drug level monitoring; Z79.899 Other long term (current) drug therapy; Z79.82 Long term (current) use of aspirin; Z79.84 Long term (current) use of oral hypoglycemic drugs; Z86.73 Personal history of transient ischemic attack (TIA), and cerebral infarction without residual deficits; Z86.718 Personal history of other venous thrombosis and embolism; Z86.711 Personal history of pulmonary embolism; Z95.1 Presence of aortocoronary bypass graft; Z83.3 Family history of diabetes mellitus; Z82.49 Family history of ischemic heart disease and other diseases of the circulatory system; Z84.1 Family history of disorders of kidney and ureter

== ENCOUNTER 2016-05-30 20:10 | Emergency (ER) | payer OTHER ==
[~2016-05-30] VITALS: Ht 152.4 cm; Wt 82.0 kg
[~2016-05-30 20:10] MED LIST changes: +FURO-85 PO; -LATA0.009 OPB; +LATA0.5S OPB; +METH4PAK PO; -TIMO0.2534 OP
[2016-05-30 20:16] VITALS: TEMP 36.9; Ht 152.4 cm; Wt 82.0 kg
--- NOTE | 2016-05-30 21:38 | EMERGENCY ROOM VISIT NOTE ---
History Report prepared by Mode: Linda Terry Under the Supervision of: Dr. Nam Trimble D.O. First contact with patient: 21:10 Chief Complaint: ILLNESS Stated Complaint: DIFFICULTY BREATHING History of Present Illness The patient is a 89 year old female who presents to the Emergency Room with complaints of increased shortness of breath over the past few days. Per patient' s family, the patient has a history of CHF and is short of breath at baseline, but they have noticed that she has had increased difficulty breathing. The patient complains of feeling tired and urinating frequently today. She does have a nonproductive cough but notes that it has been improving significantly. Her leg swelling is worse than baseline. She had a headache earlier which resolved after taking Tylenol. The patient has history of aortic stenosis, mild diabetes, hypertension and high cholesterol. She is on a fluid pill but has not had any medication changes recently. Denies chest pain, abdominal pain, vomiting , or other complaints. Source of History: patient, family, spouse/significant other Onset: a few days ago Position: other (global) Quality: other (shortness of breath) Timing: worsening Associated Symptoms: + cough, + urinary symptoms (frequency), No abdominal pain, No chest pain, No vomiting Note: Other symptoms: tired, leg swelling Review of Systems See HPI for pertinent positives & negatives. A total of 10 systems reviewed and were otherwise negative. Past Medical & Surgical Medical Problems: (1) Aortic valve stenosis, severe (2) Diab Azeb Wo Compl, Type Ii Or Unspec Type, Not Uncntrld (3) GERD (gastroesophageal reflux disease) (4) Glaucoma (5) H/O: CVA (cerebrovascular accident) (6) Heart disease (7) Heterozygous for MTHFR gene mutation (8) Hip fracture, intertrochanteric (9) History of DVT (deep vein thrombosis) (10) History of fracture of vertebra (11) History of pulmonary embolus (PE) (12) Hyperlipidemia Nec/Nos (13) Hypertension Nos (14) Osteoporosis (15) PVD (peripheral vascular disease) (16) RBBB (17) Rheumatoid arthritis (18) Right Hip Fracture (19) S/p stomach biopsy (20) SOB (shortness of breath) Surgical Problems: (1) H/O esophagogastroduodenoscopy (2) H/O heart bypass surgery (3) H/O thyroid surgery (4) History of cataract surgery (5) History of right knee joint replacement (6) S/P CABG x 2 (7) S/p fixation of hip fracture (8) S/P repair of paraesophageal hernia Family History Diabetes mellitus FH: cancer FH: heart disease Hypertension Kidney disease Kidney stones Social History Smoking Status: Never Smoker Alcohol Use: none Drug Use: none Marital Status: Housing Status: lives alone Occupation Status: retired Current/Historical Medications Scheduled Aspirin Enteric Coated (Ecotrin Or Generic), 81 MG PO DAILY Atorvastatin (Lipitor), 40 MG PO DAILY Cephalexin Monohydrate (Keflex), 500 MG PO QID Furosemide (Lasix), 10 MG PO DAILY Latanoprost (Xalatan 0.005% Oph [place]), 1 DROPS OPB HS Lisinopril (Zestril), 10 MG PO QAM Methylprednisolone (Medrol Dosepak), 1 PKT PO DAILY Metoprolol Succ (Toprol Xl) (Toprol-Xl), 12.5 MG PO DAILY Omeprazole (Prilosec), 20 MG PO QAM Ropinirole (Requip), 0.25 MG PO HS Sitagliptin (Januvia), 25 MG PO QAM Scheduled PRN Acetaminophen (Acetaminophen Extra Stren), 1,000 MG PO Q6 PRN for Pain or Fever Nitroglycerin (Nitrostat), 0.4 MG UT UD PRN for Chest Pain Allergies Coded Allergies: No Known Allergies (Verified , 05/21/16) Physical Exam Vital Signs Date Time Temp Pulse Resp B/P Pulse Ox O2 Delivery O2 Flow Rate FiO2 05/31/16 02:32 84 18 117/54 94 05/31/16 01:11 95 05/31/16 01:11 100 16 116/55 93 Room Air 05/31/16 00:33 100 18 114/68 95 Room Air 05/30/16 23:09 100 24 109/60 94 Room Air 05/30/16 22:07 101 135/67 95 Room Air 05/30/16 22:02 102 05/30/16 21:56 97 Room Air 05/30/16 21:56 97 Room Air 05/30/16 20:16 36.9 111 20 124/65 91 Room Air Physical Exam GENERAL: Patient is awake and alert, mildly anxious appearing but overall comfortable, does not appear to be in any pain. EYES: The conjunctivae are clear. The pupils are round and reactive. EARS, NOSE, MOUTH AND THROAT: The nose is without any evidence of any deformity. Mucous membranes are moist tongue is midline NECK: The neck is nontender and supple. RESPIRATORY: Lung sounds diminished at both bases. There were rales in the left lung field. Mild tachypnea was appreciated but no significant conversational dyspnea. CARDIOVASCULAR: Regular rate and rhythm noted, there was a systolic murmur noted to auscultation. GASTROINTESTINAL: The abdomen is soft. Bowel sounds are present in all quadrants. Abdomen is nontender MUSCULOSKELETAL/EXTREMITIES: There is no evidence of gross deformity full range of motion is noted in the hips and shoulders SKIN: Pedal edema bilaterally. No calf tenderness noted. There were no signs of cellulitis noted. NEUROLOGIC: Patient is awake alert and oriented x3 Medical Decision & Procedures ER Provider Diagnostic Interpretation: X ray results and stated below per my interpretation and radiology interpretation. Other radiology results per my review and radiologist interpretation: CHEST ONE VIEW PORTABLE CLINICAL HISTORY: Respiratory distress COMPARISON STUDY: 05/20/2016 FINDINGS: The study is rotated. The heart is mildly enlarged. There is no lobar consolidation. There is dense calcification within the mitral valve annulus. There is no significant pleural fluid present. There is mild interstitial prominence without evidence of overt failure.[ IMPRESSION: Technically limited study. Mild cardiomegaly. No evidence of overt failure. No evidence of lobar consolidation. If symptoms persist, a PA and lateral study is recommended in follow-up Electronically signed by: Ignacio Urbano M.D. 05/30/2016 9:38 PM Dictated Date/Time: 05/30/2016 9:36 PM US VENOUS BILATERAL LOWER EXTREMITIES: No evidence of DVT in the bilateral thigh or popliteal veins. Limited visualization of of the calf veins due to difficulty tolerating compression. Radiologist: Jean-Pierre Macdonald MD CT the chest was obtained in the emergency department. The report was reviewed. Preliminary Findings Only See Final Report For Complete Findings CTA CHEST: Comparison: CTA chest 05/21/16 No pulmonary embolism detected. No consolidation. Scattered bibasilar atelectasis versus scarring. No pleural effusion or pneumothorax. Status post CABG. Cardiomegaly. No pericardial effusion. Prominent mitral annulus calcifications. Radiologist: Jean-Pierre Macdonald MD Study ready at 01:24 and initial results transmitted at 02:13 Laboratory Results 05/30/16 21:50 Red Blood Count 3.67, Mean Corpuscular Volume 88.0, Mean Corpuscular Hemoglobin 29.7, Mean Corpuscular Hemoglobin Concent 33.7, Mean Platelet Volume 10.0, Neutrophils (%) (Auto) 75.6, Lymphocytes (%) (Auto) 17.4, Monocytes (%) (Auto) 6.4, Eosinophils (%) (Auto) 0.1, Basophils (%) (Auto) 0.1, Neutrophils # (Auto) 10.12, Lymphocytes # (Auto) 2.32, Monocytes # (Auto) 0.86, Eosinophils # (Auto) 0.01, Basophils # (Auto) 0.01 05/30/16 21:50 Test 05/30/16 21:50 05/30/16 22:05 White Blood Count 13.37 K/uL (4.8-10.8) Red Blood Count 3.67 M/uL (4.2-5.4) Hemoglobin 10.9 g/dL (12.0-16.0) Hematocrit 32.3 % (37-47) Mean Corpuscular Volume 88.0 fL (80-100) Mean Corpuscular Hemoglobin 29.7 pg (25-34) Mean Corpuscular Hemoglobin Concent 33.7 g/dl (32-36) Platelet Count 348 K/uL (130-400) Mean Platelet Volume 10.0 fL (7.4-10.4) Neutrophils (%) (Auto) 75.6 % Lymphocytes (%) (Auto) 17.4 % Monocytes (%) (Auto) 6.4 % Eosinophils (%) (Auto) 0.1 % Basophils (%) (Auto) 0.1 % Neutrophils # (Auto) 10.12 K/uL (1.4-6.5) Lymphocytes # (Auto) 2.32 K/uL (1.2-3.4) Monocytes # (Auto) 0.86 K/uL (0.11-0.59) Eosinophils # (Auto) 0.01 K/uL (0-0.5) Basophils # (Auto) 0.01 K/uL (0-0.2) RDW Standard Deviation 47.0 fL (36.4-46.3) RDW Coefficient of Variation 14.6 % (11.5-14.5) Immature Granulocyte % (Auto) 0.4 % Immature Granulocyte # (Auto) 0.05 K/uL (0.00-0.02) Prothrombin Time 10.9 SECONDS (9.0-12.0) Prothromb Time International Ratio 1.0 (0.9-1.1) Activated Partial Thromboplast Time 25.2 SECONDS (21.0-31.0) Partial Thromboplastin Ratio 1.0 D-Dimer 2320 ug/L FEU (0-500) Anion Gap 12.0 mmol/L (3-11) Est Creatinine Clear Calc Drug Dose 27.8 ml/min Estimated GFR () 42.1 Estimated GFR (Non- 36.3 BUN/Creatinine Ratio 25.0 (10-20) Calcium Level 8.2 mg/dl (8.5-10.1) Total Bilirubin 1.2 mg/dl (0.2-1) Aspartate Amino Transf (AST/SGOT) 15 U/L (15-37) Alanine Aminotransferase (ALT/SGPT) 28 U/L (12-78) Alkaline Phosphatase 128 U/L (45-117) Total Creatine Kinase 42 U/L (26-192) Creatine Kinase MB 0.6 ng/ml (0.5-3.6) Creatine Kinase MB Ratio 1.4 (0-3.0) Troponin I 0.105 ng/ml (0-0.045) Pro-B-Type Natriuretic Peptide 1353 pg/ml (0-1800) Total Protein 7.0 gm/dl (6.4-8.2) Albumin 3.1 gm/dl (3.4-5.0) Globulin 3.9 gm/dl (2.5-4.0) Albumin/Globulin Ratio 0.8 (0.9-2) Urine Color YELLOW Urine Appearance CLOUDY (CLEAR) Urine pH 7.0 (4.5-7.5) Urine Specific [place] 1.014 (1.000-1.030) Urine Protein NEG (NEG) Urine Glucose (UA) TRACE (NEG) Urine Ketones NEG (NEG) Urine Occult Blood NEG (NEG) Urine Nitrite POS (NEG) Urine Bilirubin NEG (NEG) Urine Urobilinogen NEG (NEG) Urine Leukocyte Esterase TRACE (NEG) Urine WBC (Auto) 1-5 /hpf (0-5) Urine RBC (Auto) 0-4 /hpf (0-4) Urine Hyaline Casts (Auto) 1-5 /lpf (0-5) Urine Epithelial Cells (Auto) 20-30 /lpf (0-5) Urine Bacteria (Auto) 4+ (NEG) Laboratory results per my review. Medications Administered Medications (Trade) Dose Ordered Sig/Deborah Route Start Time Stop Time Status Last Admin Dose Admin Ceftriaxone Sodium (Rocephin Inj) 1 gm NOW STAT IV 05/30/16 22:40 05/30/16 22:41 DC 05/30/16 23:04 1 GM Ropinirole HCl (Requip Tab) 0.25 mg HS STAT PO 05/31/16 00:22 05/31/16 00:23 DC 05/31/16 00:32 0.25 MG Metoprolol Tartrate (Lopressor Tab) 25 mg NOW STAT PO 05/31/16 00:22 05/31/16 00:23 DC 05/31/16 00:33 25 MG ECG Indication: SOB/dyspnea Rate (beats per minute): 101 Rhythm: sinus tachycardia Findings: RBBB, other (diffuse ST and T wave abnormalities noted) Comparison ECG Date: 05/21/16 Change: no significant change ED Course 2114: The patient was evaluated in room A11B. A complete history and physical examination were performed. 2239: Ordered Rocephin Inj 1 gm IV. 2229: I reassessed the patient and updated her on results so far. 0022: Ordered Lopressor tab 25 mg PO, Reqip Tab 0.25 mg PO. 0218: Upon reevaluation, the patient is resting comfortably. I discussed the results and treatment plan with the patient and her family. They verbalized agreement of the treatment plan. The patient was discharged home. Medical Decision Prior records/ancillary studies reviewed. Triage Nursing notes reviewed. Additional history obtained from the family. The patient's history was concerning for respiratory difficulties. Differential diagnosis: Etiologies such as infections, reactive airway disease, pneumonia, pneumothorax , COPD, CHF, cardiac ischemia, pulmonary embolism, musculoskeletal, gastrointestinal, as well as others were entertained. The patient is an 89-year-old female who presented to the emergency department with multiple complaints. She complained of shortness of breath. She also had urinary frequency. She was also concerned about lower extremity edema. The patient did not appear to have any acute changes on EKG but her troponin was mildly elevated. A review the patient's previous electronic medical records does show that she has a chronically elevated troponin. She doesn't a history of aortic stenosis. She does not appear to have signs of pulmonary edema on chest x-ray. Because of the patient's elevated troponin and her lower extremity edema Dopplers of the legs were obtained as well as a CT the chest. The patient was treated with IV antibiotic. I discussed the patient's laboratory and radiographic studies with her. I also discussed her case with her family members. She was encouraged to rest and avoid any strenuous activity. She was also encouraged to continue all medications as prescribed. She was also encouraged to follow-up with her primary care physician this week for reevaluation but return to the emergency department immediately if symptoms change worsen or the need arises. Impression Primary Impression: Lower extremity edema Additional Impressions: Dyspnea Urinary tract infection Scribe Attestation The scribe's documentation has been prepared under my direction and personally reviewed by me in its entirety. I confirm that the note above accurately reflects all work, treatment, procedures, and medical decision making performed by me. Departure Information Dispostion Home / Self-Care Prescriptions Cephalexin Monohydrate (KEFLEX) 500 Mg Cap 500 MG PO QID, #28 CAP Prov: Nam Trimble, 05/31/16 Referrals Robson Oquendo, D.O. (PCP) Patient Instructions ED Leg Swelling Bilateral, [facility], Urinary Tract Infecs Women Additional Instructions Call your family doctor in the morning to schedule a follow-up appointment. Continue all medications as prescribed. Problem Qualifiers
[2016-05-30 21:56] VITALS: O2SAT 97
[2016-05-30 22:13] LABS: BASO % 0.1 %; BASO ABS # 0.01 K/uL (0-0.2); COMPLETE YES; EOS % 0.1 %; HEMATOCRIT 32.3 % (37-47); IG% 0.4 %; LYMPH % 17.4 %; LYMPH ABS # 2.32 K/uL (1.2-3.4); MEAN CORPUSCULAR HEMOGLOBIN 29.7 pg (25-34); MEAN CORPUSCULAR HGB CONC 33.7 g/dl (32-36); MONO % 6.4 %; NEUT % 75.6 %; PLATELET COUNT 348 K/uL (130-400); RED BLOOD COUNT 3.67 M/uL (4.2-5.4); WHITE BLOOD COUNT 13.37 K/uL (4.8-10.8)
[2016-05-30 22:22] LABS: PROTHROMBIN TIME (PATIENT) 10.9 SECONDS (9.0-12.0)
[2016-05-30 22:27] LABS: CALCIUM 8.2 mg/dl (8.5-10.1); CREATININE 1.3 mg/dl (0.60-1.20); POTASSIUM 4.3 mmol/L (3.5-5.1)
[2016-05-30 22:34] LABS: URINE APPEARANCE CLOUDY (CLEAR); URINE BILIRUBIN NEG (NEG); URINE COLOR YELLOW; URINE EPITHELIAL CELL AUTO 20-30 /lpf (0-5); URINE NITRITE POS (NEG); URINE SPECIFIC GRAVITY 1.014 (1.000-1.030); UROBILINOGEN NEG (NEG)
[2016-05-30 22:37] LABS: MANUAL MICROSCOPIC REQUIRED? NO; REVIEW REQ? NO
[2016-05-30] MEDS ORDERED: CEFTRIAXONE SOD INJ 1 GM ADDVIAL IV STA (22:40)
[2016-05-30 22:42] LABS: ALB/GLOB RATIO 0.8 (0.9-2); CKMB/CK RATIO 1.4 (0-3.0)
[2016-05-30 23:54] LABS: ZZURINE CULT IF INDIC CATH YES
[2016-05-31] MEDS ORDERED: METOPROLOL TARTRATE 50 MG TAB PO STA (00:22)
[2016-05-31] MEDS ORDERED: ROPINIROLE HCL 0.25 MG TAB PO STA (00:22)
[2016-05-31] MEDS ORDERED: OPTIRAY 320 IV PRN (00:45)
[2016-05-31] MEDS ORDERED: CEPH500C2 PO (02:09)
[2016-05-31 02:32] VITALS: BP 117/54; PULSE 84; O2SAT 94
--- NOTE | 2016-05-31 06:31 | DIAGNOSTIC IMAGING REPORT ---
CHEST CTA for PULMONARY ARTERIES CT DOSE: 592.58 mGy.cm HISTORY: Dyspnea SOB TECHNIQUE: Multiaxial CT images of the chest were performed following the intravenous administration of contrast to evaluate the pulmonary arteries. Maximal intensity projection images were also obtained. COMPARISON STUDY: 05/21/2016 FINDINGS: There is a normal caliber thoracic aorta with no evidence for dissection. There is no evidence for pulmonary embolus. No new or interval findings compared to the prior study. Incidental findings are stable. IMPRESSION: No evidence for pulmonary embolus. Incidental findings present described unchanged Electronically signed by: Roberto Nina M.D. 05/31/2016 6:30 AM Dictated Date/Time: 05/31/2016 6:28 AM
--- NOTE | 2016-05-31 07:10 | DIAGNOSTIC IMAGING REPORT ---
ULTRASOUND BILATERAL LOWER EXTREMITY VENOUS CLINICAL HISTORY: Lower extremity edema. COMPARISON STUDY: Bilateral lower extremity venous ultrasound dated 05/21/2016. TECHNIQUE: Real-time, grayscale, and color Doppler sonography of the deep veins of the right and left lower extremity was performed from the inguinal crease to the calf. Compression and augmentation were utilized. FINDINGS: There is no sonographic evidence of deep venous thrombosis identified in the right or left lower extremity. The common femoral, superficial femoral, and popliteal veins are patent and normally compressible bilaterally. The greater saphenous vein and the profunda femoris vein at the junction with the common femoral vein are clear in both legs. The visualized calf veins are patent bilaterally. IMPRESSION: There is no sonographic evidence of deep venous thrombosis identified in the right or left lower extremity. Electronically signed by: Varun Calero M.D. 05/31/2016 7:09 AM Dictated Date/Time: 05/31/2016 7:09 AM
[2016-12-06] MEDS ORDERED: ROPI1TAB PO (19:56)
[2016-12-06] MEDS ORDERED: TRAM-10 PO (22:21)
[2016-12-06] MEDS ORDERED: CEPH500C PO (22:21)
== END 2016-05-31 02:33 | disposition home or self-care (01) ==
LOC: C.EDB 20:11 → C.EDA 05-31 02:33
DX: R06.00 Dyspnea, unspecified (principal); N39.0 Urinary tract infection, site not specified; R60.9 Edema, unspecified; I50.9 Heart failure, unspecified; I35.0 Nonrheumatic aortic (valve) stenosis; E11.9 Type 2 diabetes mellitus without complications; I10 Essential (primary) hypertension; E78.00 Pure hypercholesterolemia, unspecified; K21.9 Gastro-esophageal reflux disease without esophagitis; H40.9 Unspecified glaucoma; Z86.73 Personal history of transient ischemic attack (TIA), and cerebral infarction without residual deficits; Z86.718 Personal history of other venous thrombosis and embolism; Z86.711 Personal history of pulmonary embolism; E78.5 Hyperlipidemia, unspecified; M81.0 Age-related osteoporosis without current pathological fracture; I73.9 Peripheral vascular disease, unspecified; M06.9 Rheumatoid arthritis, unspecified; Z96.651 Presence of right artificial knee joint; Z95.1 Presence of aortocoronary bypass graft; Z83.3 Family history of diabetes mellitus; Z82.49 Family history of ischemic heart disease and other diseases of the circulatory system; Z79.82 Long term (current) use of aspirin; Z79.899 Other long term (current) drug therapy